=== PATIENT | female | born 1975 | race African-American/Black ===

== ENCOUNTER 2016-12-01 03:55 | Emergency (ER) | payer OTHER ==
[~2016-12-01] VITALS: Ht 162.6 cm; Wt 70.3 kg
--- NOTE | ~2016-12-01 | EKG ---
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
[2016-12-01] MEDS ORDERED: BENADRYL25 MG PO (04:07)
[2016-12-01 05:00] LABS: HEMATOCRIT 37.5 % (37.0-47.0); HEMOGLOBIN 13.2 gm/dL (12.0-15.0); MCH 28.1 pg (26.0-34.0); MCHC 35.2 g/dL (28.0-37.0); MCV 79.9 fL (80.0-100.0); PLATELET COUNT 231 thou/uL (150-400); RBC 4.69 mil/uL (4.20-5.00); RDW 15.7 % (10.5-14.5); WBC 5.3 thou/uL (4.0-11.0)
[2016-12-01 05:06] LABS: MANUAL DIFF YES
[2016-12-01 05:20] LABS: ANION GAP 11 mmol/L (7-16); BUN 9 mg/dL (7-18); CALCIUM 8.9 mg/dL (8.5-10.1); CHLORIDE 103 mmol/L (98-107); CO2 24 mmol/L (21-32); CREATININE 0.8 mg/dL (0.6-1.0); GLUCOSE 94 mg/dL (74-106); POTASSIUM 3.4 mmol/L (3.5-5.1); SODIUM 138 mmol/L (136-145)
[2016-12-01 05:29] LABS: ALBUMIN 4.1 g/dL (3.4-5.0); ALKALINE PHOSPHATASE 59 U/L (46-116); SGOT 13 U/L (15-37); SGPT 12 U/L (30-65); TOTAL BILIRUBIN 0.4 mg/dL (<0.1-1.0); TOTAL PROTEIN 7.7 g/dL (6.4-8.2); TROPONIN-I < 0.04 ng/mL (<0.04-0.07)
[2016-12-01] MEDS ORDERED: PRILOSEC 20 MG20 MG PO (05:35)
[2016-12-01] MEDS ORDERED: ATIVAN0.5 MG PO (05:35)
[2016-12-01 05:44] VITALS: BP 128/84
[2016-12-01 06:12] LABS: ABSOLUTE NEUTROPHILS 1.7 thou/uL (1.4-8.2); ANISOCYTOSIS 1+; ATYPICAL LYMPHS 3 %; TOTAL CELL COUNT 100
== END 2016-12-01 05:57 | disposition home or self-care (01) ==
LOC: ER 03:55
PROVIDERS: Emergency Medicine
DX: F41.9 Anxiety disorder, unspecified (principal); R14.3 Flatulence; Z91.013 Allergy to seafood; Z88.8 Allergy status to other drugs, medicaments and biological substances

== ENCOUNTER 2016-12-03 09:38 | Emergency (ER) | payer BC ==
[~2016-12-03] VITALS: Ht 162.6 cm; Wt 69.0 kg
--- NOTE | ~2016-12-03 | EKG ---
[facility] [place] [address] ELECTROCARDIOGRAM REPORT Name: MARIAA YANG [id number] Admission: 12/03/16 Attend Phys: Discharge: 12/03/16 Date of : 73 Report #: [id number] THIS REPORT FOR: //name// 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: Lashell SAM : 1975 Requested By: Pipo Treviño Order Number: [id number] MD: Darryl Hernandez Measurements Intervals [place] Rate: 94 P: 72 MN: 151 QRS: 11 QRSD: 82 T: 26 QT: 333 QTc: 417 Interpretive Statements Sinus rhythm Borderline low voltage, extremity leads Baseline wander in lead(s) V6 Compared to ECG 12/01/2016 04:05:26 Sinus tachycardia no longer present Electronically Signed On 12-04-2016 12:38:08 CDT by Darryl Hernandez [email or web address] <ELECTRONICALLY SIGNED> By: Darryl Hernandez MD, [facility] 12/04/16 1238 [id number] Darryl Hernandez MD, [facility] /EPI
[~2016-12-03 09:38] MED LIST: ATIVAN0.5 MG PO; BENADRYL25 MG PO; PRILOSEC 20 MG20 MG PO
[2016-12-03 10:08] LABS: ABSOLUTE NEUTROPHILS 2.8 thou/uL (1.4-8.2); BASOPHILS 0.3 % (0.0-2.0); EOSINOPHILS 2.9 % (0.0-3.0); HEMATOCRIT 38.9 % (37.0-47.0); HEMOGLOBIN 13.4 gm/dL (12.0-15.0); LYMPHOCYTES 29.6 % (24.0-44.0); MCH 27.6 pg (26.0-34.0); MCHC 34.4 g/dL (28.0-37.0); MCV 80.2 fL (80.0-100.0); MONOCYTES 10.3 % (1.0-8.0); PLATELET COUNT 226 thou/uL (150-400); POLYS 56.9 % (36.0-66.0); RBC 4.84 mil/uL (4.20-5.00); RDW 15.7 % (10.5-14.5); WBC 4.9 thou/uL (4.0-11.0)
[2016-12-03 10:09] LABS: MANUAL DIFF NO
[2016-12-03 10:12] LABS: ANION GAP 7 mmol/L (7-16); BUN 8 mg/dL (7-18); CHLORIDE 104 mmol/L (98-107); CO2 27 mmol/L (21-32); CREATININE 0.8 mg/dL (0.6-1.0); GLUCOSE 98 mg/dL (74-106); POTASSIUM 3.9 mmol/L (3.5-5.1); SODIUM 138 mmol/L (136-145)
[2016-12-03 10:20] LABS: TROPONIN-I < 0.04 ng/mL (<0.04-0.07)
[2016-12-03 11:07] VITALS: BP 129/81
== END 2016-12-03 11:13 | disposition home or self-care (01) ==
LOC: ER 09:38
PROVIDERS: Emergency Medicine
DX: F41.9 Anxiety disorder, unspecified (principal); G47.30 Sleep apnea, unspecified; Z91.013 Allergy to seafood; Z88.8 Allergy status to other drugs, medicaments and biological substances